=== PATIENT | female | born 1995 | race Caucasian/White ===

== ENCOUNTER 2018-01-20 11:40 | Emergency (ER) | payer BC ==
[~2018-01-20] VITALS: Ht 177.8 cm; Wt 75.0 kg
[2018-01-20 11:49] VITALS: BP 131/65
[2018-01-20] MEDS ORDERED: BUPIVAcaine/PF 2.5 mg/ml (0.25%) 30ml vial IJ ONE (12:40)
[2018-01-20] MEDS ORDERED: BUPIVAcaine/PF 2.5mg/ml (0.25%) 10ml vial IJ ONE (12:50)
[2018-01-20] MEDS ORDERED: HYDROcodone/acetaminophen 10/325mg tab PO ONE (13:20)
[2018-01-20] MEDS ORDERED: CEPH-571 PO (13:27)
== END 2018-01-20 13:57 | disposition home or self-care (01) ==
LOC: ER 11:41
DX: S63.283A Dislocation of proximal interphalangeal joint of left middle finger, initial encounter (principal); L03.115 Cellulitis of right lower limb; Z91.040 Latex allergy status; Z79.2 Long term (current) use of antibiotics; W22.8XXA Striking against or struck by other objects, initial encounter; Y93.66 Activity, soccer; Y92.89 Other specified places as the place of occurrence of the external cause; Y99.8 Other external cause status
CPT/HCPCS: 26770; 73120; 73140; 99284; J3490